=== PATIENT | female | born 1940 | race Caucasian/White ===

== ENCOUNTER 2021-04-03 08:55 | Inpatient (IN) | payer MEDICARE, BC ==
[~2021-04-03] VITALS: Ht 157.5 cm; Wt 71.8 kg
[2021-04-03] MEDS ORDERED: diltiazem 5mg/ml 5ml inj. IV ONE ×2 (09:25→10:40)
[2021-04-03 09:42] LABS: BASOPHILS % (AUTO) 0.6 % (0-1); EOSINOPHILS # (AUTO) 0.1 X10'3 (0-0.9); EOSINOPHILS % (AUTO) 1.3 % (0-6); HEMOGLOBIN 15.6 g/dl (12.0-16.0); LYMPHOCYTES % (AUTO) 14.6 % (21-51); MEAN CORPUSCULAR HEMOGLOBIN 29.3 PG (27.0-31.0); MEAN CORPUSCULAR HGB CONC 33.8 g/dL (33.0-36.5); MEAN CORPUSCULAR VOLUME 86.6 FL (78-98); MONOCYTES # (AUTO) 0.4 X10'3 (0-0.9); MONOCYTES % (AUTO) 6.2 % (2-12); NEUTROPHILS # (AUTO) 5.3 X10'3 (1.8-7.7); NEUTROPHILS % (AUTO) 77.3 % (42-75); PLATELET COUNT 218 X10'3 (140-440); RED BLOOD COUNT 5.32 X10'6 (4.20-5.60); RED CELL DISTRIBUTION WIDTH 13.8 % (11.5-14.5); WHITE BLOOD COUNT 6.8 X10'3 (4.5-11.0)
[2021-04-03 09:55] LABS: D-DIMER 1.35 MG/L FEU (0-0.50); PARTIAL THROMBOPLASTIN TIME 27 SECONDS (22-32)
[2021-04-03 09:58] LABS: ALANINE AMINOTRANSFERASE 20 U/L (12-78); ALBUMIN 3.9 G/DL (3.4-5.0); ALBUMIN/GLOBULIN RATIO 1.1 (1.1-1.5); ALKALINE PHOSPHATASE 76 IU/L (46-116); ANION GAP 13 (8-16); ASPARTATE AMINO TRANSFERASE 23 U/L (10-37); BILIRUBIN,TOTAL 0.4 MG/DL (0.1-1.0); BLOOD UREA NITROGEN 16 MG/DL (7-18); BUN/CREATININE RATIO 17.8 (6.6-38.0); CALCIUM 9.4 MG/DL (8.5-10.1); CHLORIDE 105 MMOL/L (99-107); GLUCOSE 133 MG/DL (70-104); POTASSIUM 4.3 MMOL/L (3.5-5.1); SODIUM 143 MMOL/L (135-145); TOTAL CARBON DIOXIDE 24.9 MMOL/L (24-32); TOTAL PROTEIN 7.6 G/DL (6.4-8.2); eGFR 60 ML/MIN
[2021-04-03] MEDS ORDERED: iohexol 350MG/ML 100ml bottle IV ONE (10:20)
--- NOTE | 2021-04-03 10:36 | NUR ---
PT BACK FROM CT.
[2021-04-03] MEDS ORDERED: diltiazem-NS 100mg/100ml 100 ML IV SCH ×2 (10:40→15:53)
[2021-04-03] MEDS ORDERED: magnesium hydroxide 30ml (MOM) UD suspension PO PRN (11:35)
[2021-04-03] MEDS ORDERED: morphine 2 MG/ML inj. syringe IV PRN ×2 (11:35)
[2021-04-03] MEDS ORDERED: acetaminophen 325mg tablet PO PRN ×2 (11:35)
[2021-04-03] MEDS ORDERED: ondansetron/PF 4mg/2ml inj IV PRN (11:35)
[2021-04-03] MEDS ORDERED: mag hydrox/Alum hydrox/simeth 30ml oral suspension PO PRN (11:35)
--- NOTE | 2021-04-03 11:54 | NUR ---
PER DR COOPER GO FROM 5MG/H UP TO 10MG/H ON CARDIZEM DRIP AND GIVE 1 LITER NORMAL SALINE BOLUS.
[2021-04-03] MEDS ORDERED: CHOL100025 PO (12:33)
[2021-04-03] MEDS ORDERED: ASPI-280 PO (12:33)
[2021-04-03] MEDS ORDERED: METO-395 PO (12:33)
[2021-04-03] MEDS ORDERED: LEVO25TA2 PO (12:33)
--- NOTE | 2021-04-03 14:11 | NUR ---
echo at bedside
--- NOTE | 2021-04-03 15:24 | NUR ---
Received report from KEON Caballero in ED. Awaiting patient arrival to room 3010F.
--- NOTE | 2021-04-03 15:44 | NUR ---
Patient arrived to room 3016A via gurney and scooted onto hospital bed. Patient vitals are HR 122, 95% on room air, BP 106/78, HR 80, RR 13, pain 0/10. Bed locked and lowered, nonskid socks on, call light in reach, family at the bedside and in no acute distress.
[2021-04-03 16:00] VITALS: BP 106/78
[2021-04-03 16:36] VITALS: BP 101/64
--- NOTE | 2021-04-03 17:09 | NUR ---
Paged Dr. Morris regarding patient converting to sinus rhythm and HR 60. PAGER ID: [phone] MESSAGE: [phone]. Tess Farr. Patient converted to sinus rhythm. HR 60. Thank you. Delfina HERBERT x [phone]
--- NOTE | 2021-04-03 17:24 | NUR ---
Orders to DC cardizem gtt put in per Dr. Morris.
--- NOTE | 2021-04-03 17:30 | NUR ---
[place] Medication Administration: For this medication-pass time frame, all medication were reviewed, dispensed, administered and documented per hospital policy by KEON Tran.
--- NOTE | 2021-04-03 17:30 | NUR ---
[place] documentation: I have reviewed and agree with all interventions, assessments performed and documented by KEON Tran.
[2021-04-03 18:00] VITALS: BP 90/53
--- NOTE | 2021-04-03 18:04 | NUR ---
Problems reprioritized. Patient report given, questions answered & plan of care reviewed with KEON Agarwal. Patient stable at transfer of care.
--- NOTE | 2021-04-03 18:30 | NUR ---
Patient in room PCU 3016. I have received report from Delfina HERBERT and had the opportunity to ask questions and assume patient care.
[2021-04-03 22:00] VITALS: BP 104/57
[2021-04-04 02:00] VITALS: BP 100/52
--- NOTE | 2021-04-04 06:14 | NUR ---
Problems reprioritized. Patient report given, questions answered & plan of care reviewed with Delmi HERBERT.
--- NOTE | 2021-04-04 06:22 | NUR ---
Patient in room PCU 3016. I have received report from KEON Agarwal and had the opportunity to ask questions and assume patient care. Patient asleep in bed and in no acute distress.
--- NOTE | 2021-04-04 06:38 | NUR ---
Patient in room PCU 3016. I have received report from Stefano and had the opportunity to ask questions and assume patient care. Patient is asleep in bed resting
[2021-04-04 07:00] VITALS: BP 117/52
[2021-04-04 07:54] LABS: BASOPHILS % (AUTO) 0.6 % (0-1); EOSINOPHILS # (AUTO) 0.1 X10'3 (0-0.9); EOSINOPHILS % (AUTO) 2.4 % (0-6); HEMOGLOBIN 12.9 g/dl (12.0-16.0); LYMPHOCYTES # (AUTO) 1.1 X10'3 (1.1-4.8); LYMPHOCYTES % (AUTO) 21.5 % (21-51); MEAN CORPUSCULAR HEMOGLOBIN 29.3 PG (27.0-31.0); MEAN CORPUSCULAR HGB CONC 33.8 g/dL (33.0-36.5); MEAN CORPUSCULAR VOLUME 86.8 FL (78-98); MEAN PLATELET VOLUME 8.8 FL (7.4-10.4); MONOCYTES # (AUTO) 0.5 X10'3 (0-0.9); NEUTROPHILS # (AUTO) 3.2 X10'3 (1.8-7.7); NEUTROPHILS % (AUTO) 65.5 % (42-75); PLATELET COUNT 164 X10'3 (140-440); RED BLOOD COUNT 4.39 X10'6 (4.20-5.60); RED CELL DISTRIBUTION WIDTH 13.7 % (11.5-14.5); WHITE BLOOD COUNT 4.9 X10'3 (4.5-11.0)
[2021-04-04 08:00] VITALS: BP 116/56
[2021-04-04] MEDS ORDERED: metoprolol succinate 25mg (24-HOUR) SR. Tablet PO SCH (08:00)
[2021-04-04] MEDS ORDERED: cholecalciferol (vitamin D3) 1,000 unit (25mcg) tablet PO SCH (08:00)
[2021-04-04] MEDS ORDERED: aspirin 81mg tablet.DR PO SCH (08:00)
[2021-04-04] MEDS ORDERED: levoTHYROXINE 25mcg tablet PO SCH (08:00)
[2021-04-04 08:08] LABS: ALBUMIN 3.2 G/DL (3.4-5.0); ANION GAP 8 (8-16); BLOOD UREA NITROGEN 16 MG/DL (7-18); BUN/CREATININE RATIO 18.2 (6.6-38.0); CALCIUM 8.7 MG/DL (8.5-10.1); CHLORIDE 107 MMOL/L (99-107); CREATININE 0.88 MG/DL (0.40-0.90); GLUCOSE 104 MG/DL (70-104); POTASSIUM 3.9 MMOL/L (3.5-5.1); SODIUM 142 MMOL/L (135-145); TOTAL CARBON DIOXIDE 27.2 MMOL/L (24-32); eGFR 62 ML/MIN
--- NOTE | 2021-04-04 09:27 | NUR ---
Patient stable for discharge per MD orders. All discharge instructions reviewed and questions answered appropriately. Belongings collected and sent with patient. No new prescriptions. Patient will call PCP for follow up appointment when patient gets back to [place] where she lives. PIV discontinued and cannula intact. bus monitor discontinued. Patient wheeled down to lobby and left via private vehicle.
== END 2021-04-04 09:29 | disposition home or self-care (01) | DRG 309 ==
LOC: ER 08:56 → ED HOLD 11:31 → PCU 3S 15:44
PROVIDERS: ADMIT Internal Medicine; ATTEND Internal Medicine
PROC: B32T1ZZ Computerized Tomography (CT Scan) of Left Pulmonary Artery using Low Osmolar Contrast (ICD-10-PCS; principal; 2021-04-03)
PROC: B3201ZZ Computerized Tomography (CT Scan) of Thoracic Aorta using Low Osmolar Contrast (ICD-10-PCS; 2021-04-03)
PROC: B32S1ZZ Computerized Tomography (CT Scan) of Right Pulmonary Artery using Low Osmolar Contrast (ICD-10-PCS; 2021-04-03)
DX: I48.0 Paroxysmal atrial fibrillation (principal); M48.56XA Collapsed vertebra, not elsewhere classified, lumbar region, initial encounter for fracture; E03.9 Hypothyroidism, unspecified; I10 Essential (primary) hypertension; I27.20 Pulmonary hypertension, unspecified; K44.9 Diaphragmatic hernia without obstruction or gangrene; Z79.82 Long term (current) use of aspirin; Z79.899 Other long term (current) drug therapy; Z90.710 Acquired absence of both cervix and uterus; Z88.1 Allergy status to other antibiotic agents; Z90.49 Acquired absence of other specified parts of digestive tract
CPT/HCPCS: 36415; 71045; 71275; 80048; 80053; 83735; 83880; 84443; 84484; 85025; 85379; 85610; 85730; 87081; 93005; 93306; 96374; 96375; 99285; G0378; J3490; Q9967